=== PATIENT | male | born 1955 | race Caucasian/White ===

== ENCOUNTER 2017-09-09 11:21 | Emergency (ER) | payer OTHER ==
[~2017-09-09] VITALS: Ht 180.3 cm; Wt 99.8 kg
[2017-09-09] MEDS ORDERED: IBUPROFEN800 MG PO (14:25)
== END 2017-09-09 14:30 | disposition home or self-care (01) ==
LOC: ED 11:21
DX: S53.402A Unspecified sprain of left elbow, initial encounter (principal); Z87.891 Personal history of nicotine dependence; Z88.0 Allergy status to penicillin; X50.0XXA Overexertion from strenuous movement or load, initial encounter
CPT/HCPCS: 73080; 99283